=== PATIENT | female | born 1965 ===

== ENCOUNTER 2019-05-04 17:05 | Emergency (ER) | payer BC, OTHER ==
[~2019-05-04] VITALS: Ht 165.1 cm; Wt 77.2 kg
[~2019-05-04 17:05] MED LIST: ACET500C5 PO; EPIN0.3P4 IM; EXCED PO; MONT4GRA PO
[2019-05-04 17:10] VITALS: BP 119/72; PULSE 78; RESP 18; Ht 165.1 cm; Wt 77.2 kg
[2019-05-04] MEDS ORDERED: predniSONE 20 MG TAB PO ONE (18:00)
[2019-05-04] MEDS ORDERED: FAMOTIDINE 20 MG TAB PO ONE (18:00)
[2019-05-04] MEDS ORDERED: BEN25 PO (18:45)
[2019-05-04] MEDS ORDERED: PRED20TA PO (18:45)
[2019-05-04] MEDS ORDERED: FAMO-96 PO (18:45)
[2019-05-04] MEDS ORDERED: EPIN0.3P4 INJ (18:47)
--- NOTE | 2019-05-05 09:38 | ERD ---
ER Documentation Chief Complaint Chief Complaint C/O BEE STING TO RIGHT MIDDLE FINGER; HX OF ALLERGY TO BEE. TOOK BENADRYL. HPI This is a 53 you female patient who present to the ED with concern for potential anaphylaxis after being stung by yellow-jacket bee approx 45 min block captain. States she had anaphylactic reaction at the age of 13. Today was sitting at edge of pool when she put her hand down on top of bee, right 3rd finger swollen at PIP, took Benadryl 50 mg, has EpiPen in her hand but did not use. Denies SOB, urticaria, no sensation of throat closure. Other hx: asthma, anxiety, GERD. ROS All systems reviewed and are negative except as per history of present illness. Medications Home Meds Active Scripts Epinephrine (Epipen 2-Ajay) 0.3 Mg/0.3 Ml Pen.injctr, 1 EA INJ ONCE PRN for ALLERGIC REACTION, #1 EA Prov:KIERAN MONAHAN DISABILITY HEARING OFFICER 05/04/19 Diphenhydramine Hcl* (Benadryl*) 25 Mg Cap, 25 MG PO Q6 for allergic reaction for 4 Days, #20 CAP Prov:KIERAN MONAHAN NP 05/04/19 Famotidine* (Pepcid*) 20 Mg Tablet, 20 MG PO BID for allergic reaction for 4 Days, TAB Prov:KIERAN MONAHAN NP 05/04/19 Prednisone* (Prednisone*) 20 Mg Tab, 40 MG PO DAILY for allergic reaction for 4 Days, #4 TAB Prov:KIERAN MONAHAN NP 05/04/19 Acetaminophen* (Tylophen*) 500 Mg Capsule, 1 CAP PO Q6H PRN for PAIN AND OR ELEVATED TEMP, #20 CAP Prov:NICOLETTE SANDERS NP 10/15/15 Reported Medications Epinephrine (Epipen 2-Ajay) Unknown Strength Pen.injctr, IM DIRECTED PRN for ALLERGIC REACTION, #1 EA 10/15/15 Montelukast Sodium* (Singulair*) Unknown Strength Gran.pack, PO HS, EA 10/15/15 Acetaminophen/Aspirin/Caffeine* (Excedrin*) Unknown Strength Tab, PO, TAB 10/15/15 Allergies Allergies: Coded Allergies: Bee Venom Protein (Honey Bee) (Verified Allergy, Severe, 05/05/19) Scioto (Verified Allergy, 05/05/19) PMhx/Soc History of Surgery: Yes (C Section) Anesthesia Reaction: No Hx Neurological Disorder: No Hx Respiratory Disorders: Yes (Asthma) Hx Cardiac Disorders: No Hx Psychiatric Problems: No Hx Miscellaneous Medical Probl: No Hx Alcohol Use: Yes Hx Substance Use: No Hx Tobacco Use: No FmHx Family History: No diabetes, No coronary disease, No other Physical Exam Vitals Vital Signs Date Temp Pulse Resp B/P (MAP) Pulse Ox O2 O2 Flow FiO2 Time Delivery Rate 05/04/19 97.8 78 18 119/72 100 17:10 (88) Physical Exam Const: No acute distress Head: Atraumatic Eyes: Normal Conjunctiva, PERRL ENT: Normal External Ears, Nose and Mouth. No redness, swelling, petechiae to phyarynx, uvula midline, no angioedema Neck: Full range of motion. No meningismus. No lympthadenopathy. Resp: Clear to auscultation bilaterally, no wheezing, no rales, no rhonchi, no stridor Cardio: Regular rate and rhythm, no murmurs Abd: Soft, non tender, non distended. Normal bowel sounds Skin: No petechiae or rashes Ext: No cyanosis, or edema Neur: Awake and alert Psych: Normal Mood and Affect Results 24 hrs Current Medications Medications Dose Sig/Tim Start Time Status Last (Trade) Ordered Route PRN Stop Time Admin Dose Reason Admin Famotidine 20 mg ONCE ONCE 05/04/19 DC 05/04/19 (Pepcid) PO 18:00 18:07 05/04/19 18:01 Prednisone 60 mg ONCE ONCE 05/04/19 DC 05/04/19 (Prednisone) PO 18:00 18:07 05/04/19 18:01 Procedures/MDM PROCEDURES/MDM -Medications: Prednisone, pepcid Patient tolerated medication well with no adverse reactions. -Consultation: Dr. Thorpe MDM: This 53 yo female patient presents to the ER with concern of impending anaphylaxis due to yellow-jacket sting to right middle finger. Patient presents anxious and without respiratory symptoms, no rash, no angioedema. Patient was observed for approx 2 hours, no deterioration in condition observed. Patient discharged home to care of sister with instructions on use of Benadryl, pepcid, and prednisone. Patient instructed on s/sx of impending airway compromise and worsening of allergic reaction and when to seek emergent medical attention. At time of discharge patient is alert, resp e/u, no wheezing, no rash. Patient also given instructions on care for bee-sting injury to right middle finger and s/sx of infection. Patient and sister verbalize feeling safe and appropriate for discharge to follow-up with PMD. DISPOSITION and PLAN: The patient has been discharge home to follow-up with community physician. Departure Diagnosis: Primary Impression: Allergic reaction Encounter type: initial encounter Qualified Codes: T78.40XA - Allergy, unspecified, initial encounter Condition: Stable Patient Instructions: First Aid: Allergic Reactions Referrals: [facility], [facility] YOU HAVE RECEIVED A MEDICAL SCREENING EXAM AND THE RESULTS INDICATE THAT YOU DO NOT HAVE A CONDITION THAT REQUIRES URGENT TREATMENT IN THE EMERGENCY DEPARTMENT. FURTHER EVALUATION AND TREATMENT OF YOUR CONDITION CAN WAIT UNTIL YOU ARE SEEN IN YOUR DOCTORS OFFICE WITHIN THE NEXT 1-2 DAYS. IT IS YOUR RESPONSIBILITY TO MAKE AN APPOINTMENT FOR FOLOW-UP CARE. IF YOU HAVE A PRIMARY DOCTOR --you should call your primary doctor and schedule an appointment IF YOU DO NOT HAVE A PRIMARY DOCTOR YOU CAN CALL OUR PHYSICIAN REFERRAL HOTLINE AT IF YOU CAN NOT AFFORD TO SEE A PHYSICIAN YOU CAN CHOSE FROM THE FOLLOWING [facility], [facility] [address] [facility] [facility] [address] [facility] [facility] [address] [facility] [address] [facility] [address] [facility]. [facility] [address] [facility] [facility]. [address] Additional Instructions: Thank you very much for allowing us to participate in your care. Your health and safety is our top priority at [facility]. Call your primary care doctor TOMORROW for an appointment during the next 2-4 days and bring all the information and medications prescribed. Have prescriptions filled and follow precisely the directions on the label. If the symptoms get worse and your provider is unavailable, return to the Emergency Department immediately. TAKE PREDNISONE 1 TAB DAILY X4 DAYS. TAKE PEPCID 1 TAB TWICE DAILY X4 DAYS. USE BENADRYL FOR THE NEXT 24 HOURS EVERY 6 HOURS THEN NEEDED FOR ITCHING or RASH Return to the emergency room immediately for any signs of anaphylaxis such as wheezing, shortness of breath, severe rash KIERAN MONAHAN NP May 05, 2019 09:38
== END 2019-05-04 19:26 | disposition home or self-care (01) ==
LOC: FTE 17:05
DX: T63.441A Toxic effect of venom of bees, accidental (unintentional), initial encounter (principal); J45.909 Unspecified asthma, uncomplicated
CPT/HCPCS: 99283; J7512